=== PATIENT | male | born 1990 | race Caucasian/White ===

== ENCOUNTER 2017-02-05 13:00 | Emergency (ER) | payer OTHER ==
[~2017-02-05] VITALS: Ht 162.6 cm; Wt 65.0 kg
[~2017-02-05 13:00] MED LIST: AUGMENTIN875 MG OR; BACTRIM DS1 TAB PO; MOTRIN IB200 MG OR; NO MEDS; PERCOCET 5/325M1 TAB OR; PROZAC20 MG OR; ULTRAM50 MG OR
[2017-02-05] MEDS ORDERED: MOTRIN800 MG PO (14:39)
[2017-02-05] MEDS ORDERED: CIPROFLOXACN500 MG PO (14:39)
[2017-02-05 14:50] VITALS: BP 129/74
== END 2017-02-05 14:50 | disposition home or self-care (01) | DRG 605 ==
LOC: ED 13:00
PROC: 0HQNXZZ Repair Left Foot Skin, External Approach (ICD-10-PCS; principal; 2017-02-05)
DX: S91.312A Laceration without foreign body, left foot, initial encounter (principal); W26.8XXA Contact with other sharp object(s), not elsewhere classified, initial encounter; Y93.89 Activity, other specified; Y92.79 Other farm location as the place of occurrence of the external cause

== ENCOUNTER 2017-02-15 19:54 | Emergency (ER) | payer OTHER ==
[~2017-02-15] VITALS: Ht 162.6 cm; Wt 64.5 kg
[~2017-02-15 19:54] MED LIST changes: +CIPROFLOXACN500 MG PO; +MOTRIN800 MG PO
[2017-02-15 20:17] VITALS: BP 129/89
== END 2017-02-15 20:29 | disposition home or self-care (01) | DRG 950 ==
LOC: ED 19:54
DX: S91.312D Laceration without foreign body, left foot, subsequent encounter (principal); Z48.02 Encounter for removal of sutures

== ENCOUNTER 2017-06-23 03:22 | Emergency (ER) | payer SELFPAY ==
[~2017-06-23] VITALS: Ht 180.3 cm; Wt 69.1 kg
[2017-06-23] MEDS ORDERED: AMOXICILLIN500 MG PO (06:03)
[2017-06-23 06:05] VITALS: BP 135/87
== END 2017-06-23 06:05 | disposition home or self-care (01) | DRG 153 ==
LOC: ED 03:22
PROC: 3E1B78Z Irrigation of Ear using Irrigating Substance, Via Natural or Artificial Opening (ICD-10-PCS; principal; 2017-06-23)
DX: H66.92 Otitis media, unspecified, left ear (principal); H61.22 Impacted cerumen, left ear

== ENCOUNTER 2017-11-12 00:22 | Emergency (ER) | payer SELFPAY ==
[~2017-11-12] VITALS: Ht 180.3 cm; Wt 62.0 kg
[~2017-11-12 00:22] MED LIST changes: +AMOXICILLIN500 MG PO
[2017-11-12] MEDS ORDERED: AMOXICILLIN500 M2 PO (00:41)
[2017-11-12] MEDS ORDERED: MOTRIN800 MG PO (00:41)
[2017-11-12 00:43] VITALS: BP 142/87
== END 2017-11-12 00:48 | disposition home or self-care (01) | DRG 159 ==
LOC: ED 00:22
DX: K04.7 Periapical abscess without sinus (principal); K02.9 Dental caries, unspecified; F17.210 Nicotine dependence, cigarettes, uncomplicated

== ENCOUNTER 2018-02-23 15:18 | Emergency (ER) | payer SELFPAY ==
[~2018-02-23] VITALS: Ht 180.3 cm; Wt 62.2 kg
[~2018-02-23 15:18] MED LIST changes: +AMOXICILLIN500 M2 PO
[2018-02-23] MEDS ORDERED: AMOXICILLIN500 MG PO (15:42)
[2018-02-23] MEDS ORDERED: TRAMADOL HCL50 MG PO (15:42)
[2018-02-23] MEDS ORDERED: MOTRIN800 MG PO (15:42)
[2018-02-23 15:45] VITALS: BP 133/81
== END 2018-02-23 15:45 | disposition home or self-care (01) | DRG 159 ==
LOC: ED 15:18
DX: K02.9 Dental caries, unspecified (principal); K04.7 Periapical abscess without sinus; F17.200 Nicotine dependence, unspecified, uncomplicated

== ENCOUNTER 2018-07-18 15:39 | Emergency (ER) | payer SELFPAY ==
[~2018-07-18] VITALS: Ht 180.3 cm; Wt 68.0 kg
[~2018-07-18 15:39] MED LIST changes: +TRAMADOL HCL50 MG PO
[2018-07-18 16:12] LABS: GFR > 60 ML/MIN (>=60 (CALC)); GFR FOR AFR.AMER. > 60 ML/MIN (>=60 (CALC))
[2018-07-18 16:21] LABS: HEMATOCRIT 45.7 % (39.0-50.0); HEMOGLOBIN 14.7 g/dl (14.0-18.0); IMMATURE GRANULOCYTES 0.3 % (0.0-5.0); MEAN CELL VOLUME 93.6 fL CALC (80.0-100.0); MEAN CORPUSCULAR HGB 30.1 pG CALC (26.0-32.0); MEAN CORPUSCULAR HGB CONC 32.2 g/L CALC (32.0-36.0); NEUT# 8.23 thou/uL (1.82-7.42); RED BLOOD COUNT 4.88 mill/uL (4.70-6.10); RED CELL DISTRI WIDTH 13.2 % (11.5-15.5)
[2018-07-18 16:30] LABS: ALBUMIN 4.9 g/dL (3.2-5.0); ALKALINE PHOSPHATASE 69 u/l (38-126); ANION GAP 17 (6-22 (CALC)); BILIRUBIN, TOTAL 0.3 mg/dL (0.0-1.4); BUN 14 mg/dL (9-20); BUN/CREATININE RATIO 12 (12-20 (CALC)); CARBON DIOXIDE 25 mmol/l (22-30); CHLORIDE 102 mmol/l (95-108); CREATININE 1.2 mg/dL (0.7-1.3); GFR > 60 ML/MIN (>=60 (CALC)); GFR FOR AFR.AMER. > 60 ML/MIN (>=60 (CALC)); LIPASE 36 u/l (23-300); POTASSIUM 4.2 mmol/l (3.5-5.1); SGOT/AST 25 u/l (17-59); SODIUM 140 mmol/l (137-146); TOTAL PROTEIN 7.7 g/dL (6.3-8.2)
[2018-07-18 17:22] VITALS: BP 142/75
== END 2018-07-18 17:30 | disposition home or self-care (01) | DRG 605 ==
LOC: ED 15:39
PROVIDERS: Family Medicine
DX: S20.211A Contusion of right front wall of thorax, initial encounter (principal); S30.1XXA Contusion of abdominal wall, initial encounter; R10.813 Right lower quadrant abdominal tenderness; R10.811 Right upper quadrant abdominal tenderness; W17.89XA Other fall from one level to another, initial encounter; Y92.007 Garden or yard of unspecified non-institutional (private) residence as the place of occurrence of the external cause
CPT/HCPCS: Q9967